=== PATIENT | female | born 1990 | race American Indian/Alaskan Native ===

== ENCOUNTER 2021-10-05 13:19 | Emergency (ER) | payer SELFPAY ==
[2021-10-05 16:52] LABS: Absolute Lymphocytes (CBC) 1.6 K/uL (0.7-4.9); Hematocrit 41.1 % (36.0-45.0); Lymphocytes % 25.3 % (15.3-44.8); MPV 7.2 fL (7.6-11.3); RBC Red Blood Cell Count 4.93 M/uL (3.86-4.86)
--- NOTE | 2021-10-05 17:08 | RAD REPORT ---
EXAM DESCRIPTION: David Single View10/05/2021 5:01 pm CLINICAL HISTORY: Chest pain COMPARISON: none FINDINGS: The lungs appear clear of acute infiltrate. The heart is normal size IMPRESSION: No acute abnormalities displayed
[2021-10-05 17:13] LABS: Potassium 4.4 mmol/L (3.5-5.1); Troponin High Sensitivity 3.2 pg/mL (<58.9)
--- NOTE | 2021-10-05 17:39 | EDPHYS ---
Physician Documentation [facility] Name: Yifan Eisenberg Age: 31 yrs Sex: Female : 1990 Arrival Date: 10/05/2021 Time: 13:24 Bed 4 Private MD: ED Physician Matthew Valentin HPI: 10/05 16:51 This 31 yrs old Female presents to ER via Ambulatory with complaints of ms3 Chest Pain. 16:51 The patient or guardian reports chest pain that is located primarily in the substernal ms3 area. The pain does not radiate. Associated signs and symptoms: Pertinent negatives: abdominal pain, nausea, shortness of breath, vomiting. The chest pain is described as squeezing. Duration: The patient or guardian reports a single episode, that is now resolved. Modifying factors: The symptoms are alleviated by nothing. the symptoms are aggravated by nothing. Severity of pain: in the emergency department the pain is a 0 / 10. . Historical: - Allergies: 13:45 No Known Allergies; ll1 - PMHx: 13:45 None; ll1 - PSHx: 13:45 section; ll1 - Immunization history:: Client reports receiving the 2nd dose of the Covid vaccine. - Social history:: Smoking status: Patient denies any tobacco usage or history of. ROS: 16:51 Constitutional: Negative for fever, and chills. Neck: Negative for injury, pain, and ms3 swelling. 16:51 Respiratory: Negative for shortness of breath, cough, wheezing, and pleuritic chest pain, Abdomen/GI: Negative for abdominal pain, nausea, vomiting, diarrhea, and constipation, MS/Extremity: Negative for injury and deformity, Skin: Negative for injury, rash, and discoloration, Psych: Negative for depression, anxiety, suicide ideation, homicidal ideation, and hallucinations. 16:51 Cardiovascular: Positive for chest pain. Exam: 13:49 ECG was reviewed by the Attending Physician. ms3 16:51 Constitutional: This is a well developed, well nourished patient who is awake, alert, ms3 and in no acute distress. ENT: Nares patent. No nasal discharge, no septal abnormalities noted. Tympanic membranes are normal and external auditory canals are clear. Oropharynx with no redness, swelling, or masses, exudates, or evidence of obstruction, uvula midline. Mucous membranes moist. Neck: Trachea midline, no cervical lymphadenopathy. Supple, full range of motion without nuchal rigidity, or vertebral point tenderness. No Meningismus. Chest/axilla: Normal chest wall appearance and motion. Nontender with no deformity. Cardiovascular: Regular rate and rhythm with a normal S1 and S2. No gallops, murmurs, or rubs. Normal PMI, no JVD. No pulse deficits. Respiratory: Lungs have equal breath sounds bilaterally, clear to auscultation and percussion. No rales, rhonchi or wheezes noted. No increased work of breathing, no retractions or nasal flaring. Abdomen/GI: Soft, non-tender, with normal bowel sounds. No distension or tympany. No guarding or rebound. No evidence of tenderness throughout. Skin: Warm, dry with normal turgor. Normal color with no rashes, no lesions, and no evidence of cellulitis. MS/ Extremity: Pulses equal, no cyanosis. Neurovascular intact. Full, normal range of motion. Psych: Awake, alert, with orientation to person, place and time. Behavior, mood, and affect are within normal limits. Vital Signs: 13:44 BP 141 / 87; Pulse 81; Resp 16; Temp 98.4; Pulse Ox 100% ; Height 5 ft. 6 in. (167.64 ll1 cm); Pain 2/10; 16:30 BP 114 / 80; Pulse 75; Resp 16; Pulse Ox 100% ; bp 17:34 BP 115 / 71; Pulse 68; Resp 17; Pulse Ox 100% ; bp MDM: 15:09 Patient medically screened. ms3 16:51 Differential diagnosis: abnormal EKG, acute myocardial infarction, anxiety, coronary ms3 artery disease chest wall pain. 17:39 Data reviewed: vital signs, nurses notes, lab test result(s), EKG, radiologic studies. ms3 Data interpreted: Pulse oximetry: on room air is 100 %. Interpretation: normal. Counseling: I had a detailed discussion with the patient and/or guardian regarding: the historical points, exam findings, and any diagnostic results supporting the discharge/admit diagnosis, lab results, radiology results, the need for outpatient follow up, to return to the emergency department if symptoms worsen or persist or if there are any questions or concerns that arise at home. ED course: Discussed EKG, CXR, labs, PE findings with patient. Patient to follow up with in 2-3 days. Patient understands/ agrees with plan. All questions answered. Return precautions given to include worsening symptoms, or any other concerns. Patient is improved, in NAD, non-toxic appearing, ambulatory in ED, speaking full sentences.. 10/05 16:15 Order name: Basic Metabolic Panel; Complete Time: 17:34 ms3 10/05 16:15 Order name: CBC with Diff; Complete Time: 17:34 ms3 10/05 13:55 Order name: EKG; Complete Time: 13:55 ll1 10/05 13:55 Order name: EKG - Nurse/Tech; Complete Time: 13:55 ll1 10/05 16:15 Order name: Troponin HS; Complete Time: 17:34 ms3 10/05 16:15 Order name: XRAY Chest (1 view); Complete Time: 17:34 ms3 10/05 16:15 Order name: Cardiac monitoring; Complete Time: 16:33 ms3 10/05 16:15 Order name: IV Saline Lock; Complete Time: 16:33 ms3 10/05 16:15 Order name: Labs collected and sent; Complete Time: 16:33 ms3 10/05 16:15 Order name: O2 Per Protocol; Complete Time: 16:16 ms3 10/05 16:15 Order name: O2 Sat Monitoring; Complete Time: 16:16 ms3 EC:49 Rate is 78 beats/min. Rhythm is regular. QRS [place] is Normal. AR interval is normal. ms3 Clinical impression: Normal ECG. Interpreted by me. Administered Medications: No medications were administered Disposition Summary: 10/05/21 17:39 Discharge Ordered Location: Home ms3 Condition: Stable ms3 Diagnosis - Chest pain, unspecified ms3 Discharge Instructions: - Discharge Summary Sheet ms3 - Nonspecific Chest Pain, Adult ms3 Forms: - Medication Reconciliation Form ms3 - Thank You Letter ms3 - Antibiotic Education ms3 - Prescription Opioid Use ms3 Signatures: Dispatcher [employer] Naomi Pardo RN RN ll1 Matthew Valentin DO DO ms3 Corrections: (The following items were deleted from the chart) 13:46 13:45 PSHx: None; ll1 ll1
--- NOTE | 2021-10-05 17:39 | ER ---
Nurse's Notes [facility] Name: Yifan Eisenberg Age: 31 yrs Sex: Female : 1990 Arrival Date: 10/05/2021 Time: 13:24 Bed 4 Private MD: Diagnosis: Chest pain, unspecified Presentation: 10/05 13:44 Chief complaint: Patient states: L sided CP off/on for 3 days. Pain radiates into ll1 posterior L shoulder. Noticed slight R sided CP today also. Coronavirus screen: Vaccine status: Patient reports receiving the 2nd dose of the covid vaccine. Client denies travel out of the [place] in the last 14 days. At this time, the client does not indicate any symptoms associated with coronavirus-19. Ebola Screen: Patient denies travel to an Ebola-affected area in the 21 days before illness onset. Initial Sepsis Screen: Does the patient meet any 2 criteria? No. Patient's initial sepsis screen is negative. Does the patient have a suspected source of infection? No. Patient's initial sepsis screen is negative. Risk Assessment: Do you want to hurt yourself or someone else? Patient reports no desire to harm self or others. Onset of symptoms was October 03, 2021. 13:44 Method Of Arrival: Ambulatory ll1 13:44 Acuity: SANJAY 3 ll1 Triage Assessment: 13:46 General: Appears uncomfortable, Behavior is cooperative, appropriate for age. Pain: ll1 Complains of pain in chest. Neuro: No deficits noted. Cardiovascular: Reports chest pain. Historical: - Allergies: 13:45 No Known Allergies; ll1 - PMHx: 13:45 None; ll1 - PSHx: 13:45 section; ll1 - Immunization history:: Client reports receiving the 2nd dose of the Covid vaccine. - Social history:: Smoking status: Patient denies any tobacco usage or history of. Screenin:45 Abuse screen: Denies threats or abuse. Denies injuries from another. Nutritional bp screening: No deficits noted. Tuberculosis screening: No symptoms or risk factors identified. Fall Risk None identified. Assessment: 16:00 General: SEE TRIAGE NOTE. bp 17:00 Reassessment: No changes from previously documented assessment. Patient and/or family bp updated on plan of care and expected duration. Pain level reassessed. 18:09 Reassessment: PT D/C HOME AMBULATORY WITH FAMILY, DX WITH NONCARDIAC CHEST PAIN. bp Vital Signs: 13:44 BP 141 / 87; Pulse 81; Resp 16; Temp 98.4; Pulse Ox 100% ; Height 5 ft. 6 in. (167.64 ll1 cm); Pain 2/10; 16:30 BP 114 / 80; Pulse 75; Resp 16; Pulse Ox 100% ; bp 17:34 BP 115 / 71; Pulse 68; Resp 17; Pulse Ox 100% ; bp ED Course: 13:24 Patient arrived in ED. mr 13:38 Matthew Valentin DO is Attending Physician. ms3 13:45 Triage completed. ll1 13:45 Patient has correct armband on for positive identification. Bed in low position. Call bp light in reach. Side rails up X2. Adult w/ patient. Client placed on continuous cardiac and pulse oximetry monitoring. NIBP monitoring applied. 13:46 Arm band placed on. EKG completed in triage. Results shown to MD. ll1 15:07 [place] Da Silva, RN is Primary Nurse. bp 16:30 Inserted saline lock: 22 gauge in left antecubital area, using aseptic technique. Blood bp collected. 17:03 XRAY Chest (1 view) In Process Unspecified. EDMS 18:10 No provider procedures requiring assistance completed. IV discontinued, intact, bp bleeding controlled, No redness/swelling at site. Pressure dressing applied. Patient maintains SpO2 saturation greater than 95% on room air. Administered Medications: No medications were administered Medication: 13:45 VIS not applicable for this client. bp Outcome: 17:39 Discharge ordered by MD. ms3 18:10 Discharged to home ambulatory, with family. bp 18:10 Condition: stable 18:10 Discharge instructions given to patient, family, Instructed on discharge instructions, follow up and referral plans. Demonstrated understanding of instructions, follow-up care. 18:11 Patient left the ED. bp Signatures: Dispatcher [employer] [facility] DavisJulia mr [place] Da Silva, Naomi Calderon RN, RN RN ll1 Matthew Valentin DO DO ms3 Corrections: (The following items were deleted from the chart) 13:46 13:45 PSHx: None; ll1 ll1 18:10 13:45 General: SEE TRIAGE NOTE. bp bp
[2021-10-05 18:25] VITALS: TEMP 98.4; O2SAT 100
[2021-10-05 18:28] VITALS: BP 115/71
--- NOTE | 2021-10-06 06:28 | EKG ---
Test Date: 2021-10-05 Test Time: 13:48:34 Machine Spreader: RODL MEASUREMENT RESULTS: Intervals: Rate: 79 NM: 144 QRSD: 70 QT: 356 QTc: 408 [place]: P: 82 NM: 144 QRS: 91 T: 24 INTERPRETIVE STATEMENTS: Normal sinus rhythm Rightward axis Borderline ECG No previous ECG available for comparison Electronically Signed On 10-06-21 06:27:39 CDT by Ash Kirkpatrick
--- NOTE | 2021-10-06 14:20 | EKG ---
Test Date: 2021-10-05 Test Time: 13:49:51 Regional Forester: RODL MEASUREMENT RESULTS: Intervals: Rate: 78 [place]: 138 QRSD: 74 QT: 378 QTc: 430 [place]: P: 83 [place]: 138 QRS: 91 T: 60 INTERPRETIVE STATEMENTS: Normal sinus rhythm Right atrial enlargement Rightward axis Pulmonary disease pattern Abnormal ECG Compared to ECG 10/05/2021 13:48:34 Atrial abnormality now present Electronically Signed On 10-06-21 14:18:58 CDT by Francisco Henriquez
== END 2021-10-05 18:11 | disposition home or self-care (01) ==
LOC: ER 13:19
DX: R07.9 Chest pain, unspecified (principal)
CPT/HCPCS: 36415; 71045; 80048; 84484; 85025; 93005; 99284

== ENCOUNTER 2022-10-25 15:32 | Emergency (ER) | payer SELFPAY ==
--- NOTE | 2022-10-25 16:37 | RAD REPORT ---
EXAM DESCRIPTION: RAD - Chest Single View - 10/25/2022 4:33 pm CLINICAL HISTORY: CHEST PAIN Chest pain. COMPARISON: <Comparisons> FINDINGS: Portable technique limits examination quality. The lungs are grossly clear. The heart is normal in size. No displaced fractures. IMPRESSION: No acute intrathoracic process suspected.
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
[2022-10-25 18:13] VITALS: TEMP 98.2
[2022-10-25 18:15] VITALS: BP 113/73; O2SAT 100
--- NOTE | 2022-10-26 12:36 | EKG ---
Test Date: 2022-10-25 Test Time: 15:54:19 Packer: LYNSEY MEASUREMENT RESULTS: Intervals: Rate: 81 ND: 144 QRSD: 76 QT: 368 QTc: 427 [place]: P: 78 ND: 144 QRS: 92 T: 68 INTERPRETIVE STATEMENTS: Normal sinus rhythm with sinus arrhythmia Rightward axis Borderline ECG Compared to ECG 10/05/2021 13:49:51 Atrial abnormality no longer present Electronically Signed On 10-26-22 12:34:46 CDT by Francisco Henriquez
== END 2022-10-25 18:07 | disposition home or self-care (01) ==
LOC: ER 15:32
DX: S16.1XXA Strain of muscle, fascia and tendon at neck level, initial encounter (principal); R07.9 Chest pain, unspecified; W01.0XXA Fall on same level from slipping, tripping and stumbling without subsequent striking against object, initial encounter
CPT/HCPCS: 36415; 70450; 71045; 72125; 84484; 93005; 99284